=== PATIENT | female | born 1995 | race Hispanic/Latino ===

== ENCOUNTER 2020-06-06 09:22 | Outpatient (CLI) | payer OTHER ==
--- NOTE | 2020-06-06 11:56 | ULT ---
OB ULTRASOUND: INDICATION: Assess anatomy. FINDINGS: There is a viable intrauterine . Gestational age by ultrasound is 25 weeks 1 day. BIOMETRY: BD 24 weeks 3 days HC 24 weeks 4 days AC 25 weeks 5 days FL 25 weeks 6 days EFW: 818 gm, 25 weeks 4 days. Placenta: Posterior Presentation: Vertex. Amniotic fluid: Within normal range. DEVIN recorded at 13.4 cm. heart rate: 156 b.p.m. Cervical length: 4.9 cm. Anatomy: The intracranial contents, 4-chamber heart, stomach, kidneys, cord insertion, bladder, spine, lips, n ose, extremities, and 3-vessel cord were all imaged. No abnormality identified. IMPRESSION: A 25-week 1-day gestational age by ultrasound. No abnormality identified. POS: AH
== END 2020-06-06 09:23 | disposition home or self-care (01) ==
LOC: BICULT 09:22
PROVIDERS: ATTEND Nurse Practitioner
DX: O09.92 Supervision of high risk pregnancy, unspecified, second trimester (principal); Z3A.25 25 weeks gestation of pregnancy
CPT/HCPCS: 76805